=== PATIENT | male | born 1960 | race Caucasian/White ===

== ENCOUNTER 2020-05-22 03:02 | Outpatient (CLI) | payer OTHER, SELFPAY ==
[2020-05-22 13:14] LABS: Anion Gap 9.5 mmol/L (3-11); BUN 17 mg/dL (7-18); CO2 24.5 mmol/L (21.0-32.0); CREATININE 0.82 mg/dL (0.70-1.30); Calcium 9.3 mg/dL (8.5-10.1); Calculated LDL 159 mg/dL (<100); Chloride 103 mmol/L (98-107); Cholesterol 251 mg/dL (<200); Glucose 100 mg/dL (74-106); HDL Cholesterol 73 mg/dL (40-60); Sodium 137 mmol/L (136-145); Triglyceride 99 mg/dL (<150)
[2020-05-22 13:24] LABS: Hemoglobin A1C 5.7 % (<5.7)
[2020-05-23 16:00] LABS: PSA, Screening 0.2 ng/mL (0-4.5)
== END 2020-05-22 03:22 ==
PROVIDERS: PCP Nurse Practitioner Family; Visit Provider Nurse Practitioner Family
DX: I10 Essential (primary) hypertension (principal); E78.5 Hyperlipidemia, unspecified; Z12.5 Encounter for screening for malignant neoplasm of prostate; Z80.42 Family history of malignant neoplasm of prostate
CPT/HCPCS: 36415; 80048; 80061; 84153; 83036

== ENCOUNTER 2020-10-30 14:19 | Outpatient (REF) | payer OTHER, SELFPAY ==
[2020-10-31 13:08] LABS: COVID-19 RT-PCR UVMMC Result Negative (Negative)
== END 2020-10-30 14:20 | disposition home or self-care (01) ==
LOC: NCHCN 14:19
PROVIDERS: PCP Nurse Practitioner Family; Visit Provider Nurse Practitioner Family
DX: Z20.822 Contact with and (suspected) exposure to COVID-19 (principal); J02.9 Acute pharyngitis, unspecified
CPT/HCPCS: U0003

== ENCOUNTER 2021-06-12 14:46 | Outpatient (REF) | payer OTHER, SELFPAY ==
[2021-06-12 19:36] LABS: Abs Immature Grans 0.02 10^3/uL (0.0-0.06); Absolute Basophil Count 0.08 10^3/uL (0.0-0.2); Absolute Eosinophil Count 0.46 10^3/uL (0.0-0.7); Absolute Lymphocyte Count 1.65 10^3/uL (1.2-3.4); Absolute Neutrophil Count 4.84 10^3/uL (1.2-6.7); ESR 22 mm/hr (0-20); HCT 42.7 % (40.0-50.0); HGB 13.8 g/dL (13.5-17.5); Immature Grans % 0.3; Lymphocytes % 21.6; MCH 31.7 pg (27.0-33.0); MCHC 32.3 % (32.0-36.0); MCV 98.2 fL (80-95); MPV 11.5 fL (8.0-11.0); Monocytes % 7.8; Neutrophils % 63.3; Nucleated RBC 0 %; Platelet Count 239 10^3/uL (130-400); RBC 4.35 10^6/uL (4.36-5.78); RDW-SD 43.6 fL; WBC 7.65 10^3/uL (4.4-10.8)
[2021-06-12 20:05] LABS: Hemoglobin A1C 5.7 % (<5.7)
[2021-06-12 20:06] LABS: ALT 37 U/L (16-63); AST 27 U/L (15-37); Albumin 4.3 g/dL (3.4-5.0); Alkaline Phosphatase 51 U/L (46-116); Anion Gap 9.7 mmol/L (3-11); BUN 17 mg/dL (7-18); Bilirubin, Total 0.4 mg/dL (0.2-1.0); C-Reactive Protein 0.39 mg/dL (0.0-0.3); CO2 28.3 mmol/L (21.0-32.0); CREATININE 0.6 mg/dL (0.70-1.30); Calcium 9.1 mg/dL (8.5-10.1); Chloride 101 mmol/L (98-107); Glucose 92 mg/dL (74-106); Potassium 3.6 mmol/L (3.5-5.1); Sodium 139 mmol/L (136-145); Total Protein 7.5 g/dL (6.4-8.2); Uric Acid 3.8 mg/dL (3.5-7.2)
[2021-06-12 20:30] LABS: Calculated LDL 91 mg/dL (<100); Cholesterol 193 mg/dL (<200); HDL Cholesterol 88 mg/dL (40-60); Triglyceride 71 mg/dL (<150)
[2021-06-13 18:25] LABS: Rheumatoid Factor <8.6 IU/mL (<12.0)
[2021-06-13 19:52] LABS: PSA, Screening 0.3 ng/mL (0.0-4.5)
[2021-06-14 11:57] LABS: Lyme Ab w Rflx to Lyme Confirm Positive (Negative)
[2021-06-14 13:28] LABS: Lyme IgG Ab Positive (Negative); Lyme IgM Ab Negative (Negative)
== END 2021-06-12 14:47 | disposition home or self-care (01) ==
LOC: LBN 14:46
PROVIDERS: PCP Nurse Practitioner Family; Visit Provider Family Medicine
DX: E78.5 Hyperlipidemia, unspecified (principal); I10 Essential (primary) hypertension; R73.03 Prediabetes; M79.641 Pain in right hand; M19.041 Primary osteoarthritis, right hand; Z12.5 Encounter for screening for malignant neoplasm of prostate
CPT/HCPCS: 80053; 80061; 84153; 85652; 86617; 83036; 84550; 85025; 86140; 86431; 86618

== ENCOUNTER 2021-06-20 11:35 | Outpatient (CLI) | payer OTHER, SELFPAY ==
--- NOTE | 2021-06-20 11:15 | DI.RAD_ITS ---
Exam(s) XR KNEE LT 3V AP,LAT,JADA EXAM: XR KNEE LT 3V AP,LAT,JADA CLINICAL HISTORY: pain. TECHNIQUE: 2D digital imaging was performed. COMPARISON: CR LEFT KNEE LIMITED 1 OR 2 VIEWS from 10/17/2015 FINDINGS: There is severe narrowing of the medial femoral tibial joint space, with a [id number] appearance. There is periarticular spurring and sclerosis. There is varus angulation at the knee and women designer y widening of lateral femoral tibial joint space. The joint space narrowing has worsened when compar ed with the previous exam. A joint effusion is seen. There are are calcifications adjacent to the l ateral aspect of the patella which could represent a joint space loose body. Mild periarticular spur ring is seen at the patella. Venous varicosities are noted in the medial upper calf region. IMPRESSION: End-stage degenerative changes of the medial femoral tibial joint. DATA REPOSITORY: RADIATION DOSE DELIVERED:
== END 2021-06-20 11:36 | disposition home or self-care (01) ==
LOC: DIORS 11:35
PROVIDERS: PCP Nurse Practitioner Family; Referring Provider Nurse Practitioner Family; Visit Provider Physician Assistant Surgical
DX: M25.562 Pain in left knee (principal); M17.12 Unilateral primary osteoarthritis, left knee
CPT/HCPCS: 73562

== ENCOUNTER 2021-10-31 14:11 | Outpatient (CLI) | payer OTHER, SELFPAY ==
[2021-10-31 13:56] LABS: HCT 41.5 % (40.0-50.0); HGB 13.9 g/dL (13.5-17.5); MCHC 33.5 % (32.0-36.0); MCV 95 fL (80-95); MPV 10.5 fL (8.0-11.0); Platelet Count 241 10^3/uL (130-400); RBC 4.35 10^6/uL (4.36-5.78); RDW-SD 42.6 fL; WBC 6.68 10^3/uL (4.4-10.8)
[2021-10-31 14:30] LABS: D-Dimer 517 ng/mlFEU (<500)
[2021-10-31 14:59] LABS: ALT 52 U/L (16-63); AST 28 U/L (15-37); Albumin 4.3 g/dL (3.4-5.0); Alkaline Phosphatase 50 U/L (46-116); BUN 17 mg/dL (7-18); Bilirubin, Total 0.4 mg/dL (0.2-1.0); CREATININE 0.7 mg/dL (0.70-1.30); Chloride 103 mmol/L (98-107); Glucose 102 mg/dL (74-106); NT-proBNP 27 pg/mL (<300); Potassium 3.7 mmol/L (3.5-5.1); Sodium 139 mmol/L (136-145); Total Protein 7.2 g/dL (6.4-8.2)
[2021-10-31 15:14] LABS: Calculated LDL 90 mg/dL (<100); Cholesterol 183 mg/dL (<200); HDL Cholesterol 80 mg/dL (40-60); Triglyceride 68 mg/dL (<150)
== END 2021-10-31 14:12 | disposition home or self-care (01) ==
LOC: LBO 14:17
PROVIDERS: Nurse Practitioner Family; PCP Nurse Practitioner Family; Visit Provider Family Medicine
DX: Z00.00 Encounter for general adult medical examination without abnormal findings (principal); R73.03 Prediabetes; M79.89 Other specified soft tissue disorders; M25.562 Pain in left knee; I10 Essential (primary) hypertension
CPT/HCPCS: 36415; 80048; 80053; 80061; 85027; 83880; 85379

== ENCOUNTER 2022-10-03 11:17 | Outpatient (CLI) | payer OTHER, SELFPAY ==
--- NOTE | 2022-10-03 10:15 | DI.RAD_ITS ---
Exam(s) XR KNEE LT 1V XR STANDING ALIGNMENT EXAM: XR STANDING ALIGNMENT and XR knee LT 1 V CLINICAL HISTORY: PRE OP L TKA. TECHNIQUE: 2D digital imaging was performed. Nine images were obtained. COMPARISON: CR RIGHT KNEE LIMITED 1 OR 2 VIEW from 05/29/2009 CR RIGHT KNEE LIMITED 1 OR 2 VIEW from 07/10/2009 CR LEFT KNEE 3 VIEW COMPLETE from 07/21/2013 CR XR KNEE LT 3V AP,LAT,JADA from 06/20/2021 FINDINGS: BONES: The hips are well maintained. In the right knee, there is moderately severe narrowing of the medial femoral tibial joint and periarticular spurring medially and laterally. In the left knee, the re is marked narrowing of the medial femoral tibial joint with remodeling of the articular surfaces. Periarticular spurring is seen involving all 3 joint compartments. There is narrowing of the patell ofemoral joint. There is a joint effusion present. The ankles are well maintained.There is no signi ficant leg length discrepancy. SOFT TISSUE: Atherosclerosis is present. IMPRESSION: Moderately severe osteoarthritis of the right knee and marked osteoarthritis of the left knee. DATA REPOSITORY: RADIATION DOSE DELIVERED:
== END 2022-10-03 11:18 | disposition home or self-care (01) ==
LOC: DIORS 11:18
PROVIDERS: PCP Nurse Practitioner Family; Referring Provider Nurse Practitioner Family; Visit Provider Student in an Organized Health Care Education/Training Program
DX: M25.562 Pain in left knee; M17.12 Unilateral primary osteoarthritis, left knee; M17.11 Unilateral primary osteoarthritis, right knee; M25.462 Effusion, left knee
CPT/HCPCS: 73560; 77073

== ENCOUNTER 2022-10-17 08:07 | Day surgery (SDC) | payer OTHER, SELFPAY ==
--- NOTE | 2022-10-16 12:09 | PDOC.DSDIS_ITS ---
Date of service: 10/17/22 Time of Service: 09:52 Discharge Plan Disposition Patient Disposition: Home Condition: Good Discharge Details Reason For Visit: Colonoscopy/colon scope Attending Provider: Taylor Romero Primary Care Provider: Gita Rios Home Meds and New Rx's Prescriptions: Discontinued bisacodyl [Dulcolax (bisacodyl)] 5 mg tablet,delayed release (DR/EC) 5 mg PO ONCE Qty: 4 0RF Rx Instructions: Colonoscopy Bowel Prep- Per Instructions polyethylene glycol 3350 17 gram/dose powder 238 g PO ONCE Qty: 238 0RF Rx Instructions: Colonoscopy Bowel Prep- Per Instructions No Action rosuvastatin 10 mg tablet 10 mg PO DAILY Qty: 90 3RF losartan-hydrochlorothiazide 100-25 mg tablet 1 tab PO DAILY Qty: 90 4RF Rx Instructions: Take one tab daily amlodipine 10 mg tablet 10 mg PO DAILY Qty: 90 3RF celecoxib [Celebrex] 100 mg capsule 100 mg PO BID Qty: 180 3RF Discharge Instructions Additional Instructions: DSU Colonoscopy Post- Op Instructions Instructions for Everyone who is given Anesthesia: For your safety, please do the following for the next twenty-four (24) hours: *Do Not operate a motor vehicle (car, truck, motorcycle, etc.) *Do Not drink alcoholic beverages or use any recreational drugs for the first 24 hours or while taking pain medications. The medications in your body may have a reaction that can be dangerous. *Do Not make any important decisions or sign any important papers. Findings: Normal Follow up: Repeat in 10 years 1. No lifting over 20 pounds or strenuous activity for the first 24 hours after your procedure. After 24 hours there are no restrictions on your activity but you may feel fatigued for a few days. 2. After you arrive home you may have a light meal and return to your normal diet as you can tolerate it without feeling sick to your stomach. 3. You may have a bloated, gaseous feeling in your belly (abdomen) after a colonoscopy. Passing gas and belching will help. Walking or lying down on your left side with your knees flexed may relieve the discomfort. Call the office at [phone] (Office) or [phone] (Hospital) right away if you notice any of the following: a.Vomiting of blood or ?coffee ground stools?. b.Rectal bleeding 1Tbsp, blood clots or continuous bleeding. c.Severe belly (abdominal) pain. d.A hard distended belly (abdomen) and an inability to pass gas. 4. Please don?t expect to have a normal BM (bowel movement) for 2-3 days after your procedure. 5. If there are questions regarding the findings of your procedure, please contact your doctor 6. If you are unable to contact your doctor with a problem, contact the hospital at [phone]. 7. Continue all your regular medications unless directed otherwise. I understand the above instructions and have no questions. Signature of Patient or Adult Escort Name of Responsible Adult Escort Signature of Nurse Date/Time Activity:: See above Diet:: See see above Discharge Orders Discharge Orders: Discharge Order (Routine); Ordered 10/17/22 Ordered By: Taylor Romero
--- NOTE | 2022-10-16 16:49 | W.ANESPRE ---
General Info Date of Service Date Performed: 10/17/22 Height: 6 ft Weight: 54.934 kg Body Mass Index (BMI): 16.4 Surgical Procedure: Operation Date: 10/17/22 09:05 Proposed Procedure Side Surgeon juan Romero, DO Meds Allergies and Home Medications Allergies Allergy/AdvReac Type Severity Reaction Status Date / Time No Known Allergies Allergy Verified 10/17/22 08:32 Home Medication Medication Instructions Recorded rosuvastatin 10 mg tablet 10 mg PO DAILY #90 tabs 11/20/21 losartan 100 1 tab PO DAILY #90 tabs 12/02/21 mg-hydrochlorothiazide 25 mg tablet amlodipine 10 mg tablet 10 mg PO DAILY #90 tab-caps 05/19/22 celecoxib 100 mg capsule (Celebrex) 100 mg PO BID #180 caps 08/11/22 Current Visit Medications: Current Medications Generic Name Dose Route Start Last Admin Trade Name Freq PRN Reason Stop Dose Admin Hyoscyamine Sulfate 0.125 mg 10/17/22 00:07 Hyoscyamine 0.125 Mg Sl/Oral/Chew SL DIRECTED PRN Ringer's Solution 1,000 mls @ 80 mls/hr 10/17/22 06:00 IV 10/26/22 23:59 INFUSION CALLIE IV Miscellaneous Supplies 1 each 10/17/22 06:00 Iv Access IV 10/26/22 23:59 DIRECTED CALLIE Ondansetron HCl 4 mg 10/17/22 00:07 Ondansetron 4 Mg/2 Ml Vial IVP Q4H PRN PRN Nausea / Vomiting Sodium Chloride 0 ml 10/17/22 06:00 Normal Saline Flush 10 Ml Syr IV 10/26/22 23:59 PRN PRN Sodium Chloride 0 ml 10/17/22 06:00 Normal Saline 10 Ml Vial IJ 10/26/22 23:59 DIRECTED PRN Sterile Water 0 ml 10/17/22 06:00 Water,Injection,Sterile 10 Ml Vial IJ 10/26/22 23:59 DIRECTED PRN PFSH Active Problems Active Problems: Problem Status Onset Code Acute carpal tunnel syndrome of right wrist G56.01 Prediabetes R73.03 Essential hypertension I10 Hyperlipidemia E78.5 Primary osteoarthritis of left knee M17.12 Smoker F17.200 Alcohol abuse F10.10 Surgical History Surgical History (Reviewed 10/31/21 @ 15:20 by CHON Carlton S/P left knee arthroscopy S/P tonsillectomy and adenoidectomy Tobacco Smoking/Tobacco Use Status: Current every day Tobacco Type: cigarettes Smoking cigarettes per day: 10 Passive smoking exposure: Yes Second hand exposure: Yes Alcohol Alcohol Intake: current Alcohol intake frequency: a few times a week Alcohol type: beer Substance Use Substance use: Never Substance use type: does not use Vital Signs and Lab Results Vital Signs Most Recent Vital Signs in EMR: Temp Pulse Resp BP Pulse Ox 36.5 C 104 H 20 159/85 H 98 10/17/22 08:35 10/17/22 08:35 10/17/22 08:35 10/17/22 08:35 10/17/22 08:35 Lab Results Blood Type / Crossmatch: No Data to Display Complete Blood Count: No Data to Display Complete Metabolic Panel: No Data to Display Liver Function Panel: No Data to Display Coagulation Panel: No Data to Display Cardiac Panel: No Data to Display Arterial Blood Gas: No Data to Display Venous Blood Gas: No Data to Display Pancreas Panel: No Data to Display Thyroid Panel: No Data to Display Infectious Disease: No Data to Display Blood Cultures: No Data to Display Toxicology Panel: No Data to Display Anesthesia Assessment and Plan Anesthesia History Personal History: No History of Anesthesia Complications Family History: No Family History of Anesthesia Complications Exercise Tolerance Exercise Tolerance: Metabolic Equivalents>4 Cardiac & Pulmonary Exam Cardiac Exam: Normal S1/S2 Heart Sounds Pulmonary Exam: Clear Bilateral Breath Sounds Implantable Cardiac Device Does patient have a Pacemaker or an ICD?: No Airway Exam Known Difficult Airway: No Mallampati Class: 3 Mouth Opening: Narrow (< 3cm) Thyromental Distance: Greater than 3 cm Neck Range of Motion: Full ROM Neck Circumference: Normal Teeth Condition: Normal Dentition ASA Classification ASA Score: ASA 2 Emergency Case?: No NPO Status NPO Status: NPO Clears >2 hours, Solids >8 hours Anesthesia Plan Resuscitation Status: Full Code Anesthesia Technique: General Anesthesia Airway Planned: Natural Airway Monitors Used: Standard Monitors Preoperative Comments:: 62 yo male for colo. Sig PMHx: HTN (losartan, HCTZ, amlodipine), smoker, EtOH abuse, preDM. Previous Anes: knee scope, LMA 5, easy mask.
[2022-10-17 08:35] VITALS: BP 159/85; PULSE 104; RESP 20; TEMP 36.5; O2SAT 98
[2022-10-17] MEDS: Lactated Ringers 1,000 ML 80 ML IV (08:55)
[2022-10-17 09:05] VITALS: BMI 16.4
--- NOTE | 2022-10-17 09:08 | W.COLOREPORT ---
Date of service: 10/17/22 Time of Service: 09:08 Colonoscopy Report Date of procedure: 10/17/22 Pre-op diagnosis general: CRC screening Post-op diagnosis procedure note: other (normal /hemorrhoids ) Surgeon: Taylor Romero Anesthesia Type: General:No Airway Estimated blood loss (mL): 0 Pathology: none sent Complications: None Disposition: same day Prep: Miralax/Dulcolax Retraction Time: 16 Procedure Description: After informed consent was obtained the patient was taken to the procedure room and placed in a left decubitous position. Monitors were applied and a time out was done. The patients name, date of , procedure, allergies to medications and metal in their body was reviewed. The patient was then sedated. Once sedated and comfortable a rectal exam was done. External exam -thrombosed external hemorrhoid.. Internal exam revealed a normal sphincter tone and no palpable masses. The prostate nl. The scope was then introduced and retrofelexed. No internal hemorrhoids were identified. The scope was then advanced to the cecum w/out difficulty. The TI and appendiceal orifice were identified. The prep was BBPS 2 in the right colon, the rest visit BBPS 3 for a total of 8.. The scope was then slowly retracted over 16 minutes back into the rectum. there are no polyps, AVMs, diverticula or strictures visualized today. The scope was removed and the patient was woken up and taken back to Same day surgery in stable condition. The patient tolerated the procedure well and there were no immediate complications. Follow up: The patient should follow up in 10 years unless they develop changes in bowel habits or other new gastrointestinal complaints.
[2022-10-17 09:54] VITALS: BP 118/80; PULSE 82; RESP 16; TEMP 36.4; O2SAT 96
[2022-10-17 10:21] VITALS: BP 120/78; PULSE 75; RESP 18; TEMP 36.5; O2SAT 98
--- NOTE | 2022-10-17 10:21 | W.ANESPOSTOP ---
Postoperative Evaluation Date, Time and Location Date Performed: 10/17/22 Time Performed: 10:00 Patient Location: Day Surgery Unit Vital Signs Most Recent Imported Vital Signs: Most Recent Vital Signs Temp Pulse Resp BP Pulse Ox 36.4 C L 82 16 118/80 96 10/17/22 09:54 10/17/22 09:54 10/17/22 09:54 10/17/22 09:54 10/17/22 09:54 Pain Score Most Recent Pain Score: Most Recent Pain Score Pain Level 0 10/17/22 09:54 Assessment Mental Status: Awake (Alert & Oriented to Patient Baseline) Airway and Respiratory Function: Patent airway with normal (patient baseline) respiratory exam Cardiovascular Function: Hemodynamically Stable Hydration Status: Adequately Hydrated Nausea & Vomiting: No Nausea or Vomiting Pain: Pt. Denies Any Pain Peripheral Nerve Block: Patient did not receive a nerve block
== END 2022-10-17 10:48 | disposition home or self-care (01) ==
PROVIDERS: PCP Nurse Practitioner Family; Visit Provider Surgery
PROC: 0DJD8ZZ Inspection of Lower Intestinal Tract, Via Natural or Artificial Opening Endoscopic (ICD-10-PCS; CPT 45378; principal; 2022-10-17 09:00)
DX: Z12.11 Encounter for screening for malignant neoplasm of colon (principal); K64.5 Perianal venous thrombosis
CPT/HCPCS: 45378; J2250; J2405

== ENCOUNTER 2022-11-14 02:56 | Outpatient (CLI) | payer OTHER, SELFPAY ==
[2022-11-14 11:17] LABS: HCT 42.2 % (40.0-50.0); HGB 14.7 g/dL (13.5-17.5); MCH 32.7 pg (27.0-33.0); MCHC 34.8 % (32.0-36.0); MCV 94 fL (80-95); MPV 10.7 fL (8.0-11.0); Platelet Count 238 10^3/uL (130-400); RBC 4.49 10^6/uL (4.36-5.78); RDW 12.4 % (11.8-14.1); RDW-SD 43.1 fL; WBC 7.95 10^3/uL (4.4-10.8)
[2022-11-14 11:50] LABS: Hemoglobin A1C 5.9 % (<5.7)
[2022-11-14 12:38] LABS: Anion Gap 11.9 mmol/L (3-11); BUN 17 mg/dL (7-18); CO2 25.1 mmol/L (21.0-32.0); CREATININE 0.8 mg/dL (0.70-1.30); Calcium 9.6 mg/dL (8.5-10.1); Chloride 102 mmol/L (98-107); Estimated GFR 99.44 (mL/min/1.73m2); Glucose 113 mg/dL (74-106); Potassium 3.8 mmol/L (3.5-5.1); Sodium 139 mmol/L (136-145)
[2022-11-14 19:26] LABS: PSA, Screening 0.4 ng/mL (<=4.5)
== END 2022-11-14 02:57 | disposition home or self-care (01) ==
LOC: LBO 02:57
PROVIDERS: PCP Nurse Practitioner Family; Visit Provider Student in an Organized Health Care Education/Training Program
DX: Z00.00 Encounter for general adult medical examination without abnormal findings (principal); R73.03 Prediabetes; M25.562 Pain in left knee; M17.12 Unilateral primary osteoarthritis, left knee; Z12.5 Encounter for screening for malignant neoplasm of prostate; Z01.818 Encounter for other preprocedural examination; Z01.812 Encounter for preprocedural laboratory examination
CPT/HCPCS: 36415; 80048; 84153; 85027; 83036

== ENCOUNTER 2022-11-19 10:49 | Day surgery (SDC) | payer OTHER, SELFPAY ==
[2022-11-19 11:14] VITALS: BP 145/75; PULSE 117; RESP 18; TEMP 37; O2SAT 98
[2022-11-19] MEDS: Lactated Ringers 1,000 ML 80 ML IV (11:34)
[2022-11-19] MEDS: Acetaminophen 500 MG TAB 1000 MG PO (11:38)
[2022-11-19] MEDS: Celecoxib 200 MG CAP 400 MG PO (11:38)
[2022-11-19] MEDS: Gabapentin 300 MG CAP PO (11:38)
--- NOTE | 2022-11-19 11:58 | W.ANESPRE ---
General Info Date of Service Date Performed: 11/19/22 Height: 6 ft Weight: 117.6 kg Body Mass Index (BMI): 35.2 Surgical Procedure: Operation Date: 11/19/22 12:40 Proposed Procedure Side Surgeon p Knee Total Arthroplasty, Cementless FB/CR Left Miguel Ángel Cleveland MD Meds Allergies and Home Medications Allergies Allergy/AdvReac Type Severity Reaction Status Date / Time No Known Allergies Allergy Verified 11/18/22 14:44 Home Medication Medication Instructions Recorded amlodipine 10 mg tablet 10 mg PO DAILY #90 tab-caps 05/19/22 hydrocortisone 2.5 % topical cream 1 applic topical QID PRN #30 grams 10/17/22 rosuvastatin 10 mg tablet 10 mg PO DAILY #90 tabs 10/20/22 losartan 100 1 tab PO DAILY #90 tabs 11/03/22 mg-hydrochlorothiazide 25 mg tablet acetaminophen 500 mg tablet 1,000 mg PO TID #90 tabs 11/19/22 aspirin 81 mg tablet,delayed 81 mg PO BID #60 tabs 11/19/22 release celecoxib 200 mg capsule 200 mg PO BID #60 caps 11/19/22 dexamethasone 4 mg tablet 4 mg PO DAILY #2 tabs 11/19/22 gabapentin 300 mg capsule 300 mg PO QHS #14 caps 11/19/22 oxycodone 5 mg tablet 5 mg PO Q4H PRN pain #20 tabs 11/19/22 pantoprazole 40 mg tablet,delayed 40 mg PO DAILY #30 tabs 11/19/22 release Current Visit Medications: Current Medications Generic Name Dose Route Start Last Admin Trade Name Freq PRN Reason Stop Dose Admin Acetaminophen 1,000 mg 11/19/22 06:00 11/19/22 11:38 Acetaminophen 500 Mg Tab PO 11/19/22 16:00 1,000 mg PREOP CALLIE Administration Acetaminophen 1,000 mg 11/19/22 10:12 Acetaminophen 500 Mg Tab PO 12/19/22 13:59 TID PRN Analgesia Celecoxib 400 mg 11/19/22 06:00 11/19/22 11:38 Celecoxib 200 Mg Cap PO 11/19/22 16:00 400 mg PREOP CALLIE Administration Docusate Sodium 100 mg 11/19/22 10:12 Docusate Sodium 100 Mg Cap PO 12/19/22 10:11 BID PRN PRN Constipation Gabapentin 300 mg 11/19/22 06:00 11/19/22 11:38 Gabapentin 300 Mg Cap PO 11/19/22 16:00 300 mg PREOP CALLIE Administration Tranexamic Acid 1,000 mg/ 60 mls @ 360 mls/hr 11/19/22 06:00 Sodium Chloride IVPB 11/19/22 16:00 PREOP CALLIE Cefazolin Sodium 3,000 mg/ 100 mls @ 200 mls/hr 11/19/22 06:00 Sodium Chloride IVPB 11/19/22 18:00 PREOP CALLIE Ringer's Solution 1,000 mls @ 80 mls/hr 11/19/22 06:00 11/19/22 11:34 IV 12/18/22 23:59 80 mls/hr INFUSION CALLIE Administration IV Miscellaneous Supplies 1 each 11/19/22 06:00 Iv Access IV 12/18/22 23:59 DIRECTED CALLIE Ondansetron HCl 4 mg 11/19/22 10:12 Ondansetron 4 Mg/2 Ml Vial IVP 12/19/22 10:11 Q6H PRN PRN Nausea Oxycodone HCl 0 mg 11/19/22 10:12 Oxycodone 5 Mg Tab PO 12/19/22 10:11 Q3H PRN PRN Pain Polyethylene Glycol 17 gm 11/19/22 10:12 Polyethylene Glycol 3350 17 Gm Packet PO 12/19/22 10:11 BID PRN PRN Constipation Sodium Chloride 0 ml 11/19/22 06:00 Normal Saline Flush 10 Ml Syr IV 12/18/22 23:59 PRN PRN Sodium Chloride 0 ml 11/19/22 06:00 Normal Saline 10 Ml Vial IJ 12/18/22 23:59 DIRECTED PRN Sterile Water 0 ml 11/19/22 06:00 Water,Injection,Sterile 10 Ml Vial IJ 12/18/22 23:59 DIRECTED PRN PFSH Active Problems Active Problems: Problem Status Onset Code Alcohol abuse F10.10 Essential hypertension I10 Primary osteoarthritis of left knee M17.12 Hyperlipidemia E78.5 Prediabetes R73.03 Carpal tunnel syndrome of right wrist G56.01 Cigarette smoker F17.210 Medical History Medical History (Updated 11/19/22 @ 11:10 by Radha Porter RN) Tibial plateau fracture Right, approx 10 years ago Medical History Comments:: pt reports delirium after last anesthesia with L knee scope Surgical History Surgical History S/P left knee arthroscopy S/P tonsillectomy and adenoidectomy Tobacco Smoking/Tobacco Use Status: Current every day Tobacco Type: cigarettes Smoking packs per day: 0.5 Smoking cigarettes per day: 10.0 Years smoked: 40 Smoking pack-years: 20.00 Passive smoking exposure: No Second hand exposure: Yes Alcohol Alcohol Intake: current Alcohol intake frequency: a few times a week Alcohol type: beer Substance Use Substance use: Never Substance use type: does not use Details: tobacco last use 1000 am last alcohol t-2 Vital Signs and Lab Results Vital Signs Most Recent Vital Signs in EMR: Most Recent Vital Signs Temp Pulse Resp BP Pulse Ox 37.0 C 117 H 18 145/75 H 98 11/19/22 11:14 11/19/22 11:14 11/19/22 11:14 11/19/22 11:14 11/19/22 11:14 Lab Results Blood Type / Crossmatch: No Data to Display Complete Blood Count: White Blood Count 7.95 10^3/uL (4.4-10.8) 11/14/22 11:09 Red Blood Count 4.49 10^6/uL (4.36-5.78) 11/14/22 11:09 Hemoglobin 14.7 g/dL (13.5-17.5) 11/14/22 11:09 Hematocrit 42.2 % (40.0-50.0) 11/14/22 11:09 Platelet Count 238 10^3/uL (130-400) 11/14/22 11:09 Complete Metabolic Panel: Sodium 139 mmol/L (136-145) 11/14/22 11:09 Potassium 3.8 mmol/L (3.5-5.1) 11/14/22 11:09 Chloride 102 mmol/L (98-107) 11/14/22 11:09 Carbon Dioxide 25.1 mmol/L (21.0-32.0) 11/14/22 11:09 BUN 17 mg/dL (7-18) 11/14/22 11:09 Creatinine 0.8 mg/dL (0.70-1.30) 11/14/22 11:09 Est GFR (CKD-EPI 2020) 99.44 (mL/min/1.73m2) 11/14/22 11:09 Calcium 9.6 mg/dL (8.5-10.1) 11/14/22 11:09 Glucose 113 mg/dL (74-106) H 11/14/22 11:09 Hemoglobin A1c 5.9 % (<5.7) H 11/14/22 11:09 Liver Function Panel: No Data to Display Coagulation Panel: No Data to Display Cardiac Panel: No Data to Display Arterial Blood Gas: No Data to Display Venous Blood Gas: No Data to Display Pancreas Panel: No Data to Display Thyroid Panel: No Data to Display Infectious Disease: No Data to Display Blood Cultures: No Data to Display Toxicology Panel: No Data to Display Anesthesia Assessment and Plan Anesthesia History Personal History: PONV and Other Family History: No Family History of Anesthesia Complications Exercise Tolerance Exercise Tolerance: Metabolic Equivalents>4 Pertinent Negatives Pertinent Negatives: No Symptoms of GERD, No Major Cardiovascular Symptoms or Complaints and No Major Pulmonary Symptoms or Complaints Cardiac & Pulmonary Exam Cardiac Exam: Normal S1/S2 Heart Sounds Pulmonary Exam: Clear Bilateral Breath Sounds Implantable Cardiac Device Does patient have a Pacemaker or an ICD?: No Airway Exam Known Difficult Airway: No Mallampati Class: 3 Mouth Opening: Narrow (< 3cm) Thyromental Distance: Greater than 3 cm Neck Range of Motion: Full ROM Neck Circumference: Normal Teeth Condition: Normal Dentition ASA Classification ASA Score: ASA 2 Emergency Case?: No NPO Status NPO Status: NPO Clears >2 hours, Solids >8 hours Anesthesia Plan Resuscitation Status: Full Code Anesthesia Technique: Spinal Anesthesia Airway Planned: Natural Airway Pain Management: Surgeon and patient request nerve block Monitors Used: Standard Monitors
[2022-11-19 12:04] VITALS: BMI 35.2
[2022-11-19 12:26] VITALS: BP 149/80; PULSE 102; RESP 16; TEMP 37; O2SAT 98
--- NOTE | 2022-11-19 12:38 | W.ANESNERVE ---
Nerve Block Single Injection Procedure Date and Time Date Performed: 11/19/22 Procedure Start: 12:26 Location Where Procedure Performed Procedure Location: Day Surgery Unit Reason Performed: Postoperative Analgesia Requesting Provider: Miguel Ángel Cleveland Timeout Performed Timeout Performed: Yes Monitoring Used ECG, Blood Pressure and SpO2 Sterility Sterility: Hand Hygiene, Surgical Cap, Surgical Mask, Sterile Gloves and Chlorhexidine Sedation Given During Procedure Sedation Given (Indicate Dose Given): No Sedation given Patient Mental Status Patient Mental Status: Awake Nerve Block 1st Nerve Block: Laterality: Left Block Type: Adductor Canal Ultrasound Image Saved?: Yes Needle / Catheter Used: 100mm SonoPlex II Local Anesthetic Bolus (Indicate Dose Given): None and Bupivacaine 0.25% Dose:: 15 ml Additives (Indicate Dose Given): None Ultrasound: Sterile probe cover and gel used Nerve Stimulator: Supplement to Ultrasound use and No twitch or parasthesia noted < 0.5 mA Paresthesia: None Post Procedure Pain score (0-10): 0 Procedure Tolerated: No Complications and Patient tolerated well Procedure Outcome: Successful Performed By: Anthony Bertrand
[2022-11-19] MEDS: ceFAZolin 3,000 MG in Normal Saline 100 ML 200 MG IVPB (13:09)
[2022-11-19 15:11] VITALS: BP 153/83; PULSE 103; RESP 18; TEMP 36.4; O2SAT 97
[2022-11-19] MEDS: Doxycycline Hyclate 100 MG CAP 200 MG PO (15:21)
[2022-11-19] MEDS: oxyCODONE 5 MG TAB PO (15:21)
--- NOTE | 2022-11-19 15:31 | W.ANESPOSTOP ---
Postoperative Evaluation Date, Time and Location Date Performed: 11/19/22 Time Performed: 15:31 Patient Location: Day Surgery Unit Vital Signs Most Recent Imported Vital Signs: Most Recent Vital Signs Temp Pulse Resp BP Pulse Ox 36.4 C L 103 H 18 153/83 H 97 11/19/22 15:11 11/19/22 15:11 11/19/22 15:11 11/19/22 15:11 11/19/22 15:11 Pain Score Most Recent Pain Score: Most Recent Pain Score Pain Level 7 11/19/22 15:11 Assessment Mental Status: Awake (Alert & Oriented to Patient Baseline) Airway and Respiratory Function: Patent airway with normal (patient baseline) respiratory exam Cardiovascular Function: Hemodynamically Stable Hydration Status: Adequately Hydrated Nausea & Vomiting: No Nausea or Vomiting Pain: Pain is Moderate or Severe Postoperative Pain Management: Pain being addressed with medication Peripheral Nerve Block: Regional nerve block not resolved at time of post operative discharge
[2022-11-19 15:37] VITALS: BP 160/82; PULSE 103; RESP 18; TEMP 36.7; O2SAT 97
--- NOTE | 2022-11-19 16:05 | PT.INIE ---
PT Notes Visit Reasons: L TKR Physical Therapy Day Surgery Initial Evaluation Date: 11/19/2022 Referring Doctor: CONSTANCE Jensen PT Orders: PT CONSULT: S/p Ortho surgery Precautions: WBAT on left LE with AD Patient Profile/Admitting Diagnosis: Jose Cruz is a 62-year-old male with degenerative joint disease of the left knee and is status post left total knee arthroplasty on postoperative day 0. PMHX: All Active Problems Prediabetes (Chronic) Essential hypertension (Chronic) Hyperlipidemia (Chronic) Primary osteoarthritis of left knee (Chronic) Alcohol abuse (Chronic) Carpal tunnel syndrome of right wrist (Chronic) Cigarette smoker (Chronic) Surgical History? S/P left knee arthroscopy S/P tonsillectomy and adenoidectomy Social History/Home Situation: Lives alone in a private home with one-step to enter. Does have a flight of steps to the second floor of his house however okay to stay in the main floor as he recovers. Building new home in [place] on his own, 75% done. Has a brother who will be able to stay with him tonight. Equipment Owned/DME: None Subjective: Reports 4/10 pain in the left knee with weight bearing that eventually subsided. Denies headache, chest pain, and lightheadedness throughout session. Objective: General Observation: Seated on bedside chair. JENSEN wraps to left LE. TEDS to right leg. Mental Status: Alert and oriented x4 Pain: 4/10 in the left knee ROM: Right Lower Extremity: Hip flexion WFL. Hip abduction WFL. Knee flexion WFL. Ankle dorsiflexion WFL. Ankle plantarflexion WFL. Left Lower Extremity: Hip flexion WFL. Hip abduction WFL. Knee flexion 20 degrees to 100 degrees. Knee extension -20 degrees. Ankle dorsiflexion WFL. Ankle plantarflexion WFL. Strength: Right Lower Extremity: Hip flexors 5/5. Hip abductors 5/5. Knee flexors 5/5. Knee extensors 5/5. Ankle dorsiflexors 5/5. Ankle plantarflexors 5/5. Left Lower Extremity:Hip flexors 5/5. Hip abductors 5/5. Knee flexors 3-/5. Knee extensors 3-/5. Ankle dorsiflexors 5/5. Ankle plantarflexors 5/5. Sensation: Progress to pain and light pressure in bilateral lower extremities Bed Mobility/Transfers: Sit to stand standby assist Stand to sit standby assist Bed to chair standby assist Gait: Tolerated level surface ambulation of 150 feet using front wheeled walker with step to gait pattern. L knee extension at L mid stance limited but no loss of balance. Stairs: Negotiated 6 x 4 inch steps and 4 x 6 inch steps while holding onto bilateral rails with step to gait pattern. Now considering placement of bilateral rails at home. Balance: Static Sitting: Normal Dynamic Sitting: Normal Static Standing: Fair Dynamic Standing: Fair Special Tests: Mobility Limitations Standardized Measure [facility]-P[facility] 6 clicks Basic Mobility Inpatient Short Form: Raw Score: 23 CMS Score: 11% deficit Informed Consent/Education: Patient instructed in purpose of PT consult. Packet containing TKA exercise protocol has been given to patient. Education and training on initial set of exercises that can be done at home have been completed with patient, as follows: Access Code: [email or web address] URL: [email or web address] Date: 11/19/2022 Prepared by: Angie Crump Exercises - Supine Quadricep Sets - 1 x daily - 7 x weekly - 1 sets - 10 reps - 5 hold - Supine Heel Slide - 1 x daily - 7 x weekly - 1 sets - 10 reps - 5 hold - Supine Ankle Pumps - 1 x daily - 7 x weekly - 1 sets - 10 reps - 5 hold - Small Range Straight Leg Raise - 1 x daily - 7 x weekly - 1 sets - 10 reps - 5 hold - Seated March - 1 x daily - 7 x weekly - 1 sets - 10 reps - 5 hold Assessment: Jose Cruz requires use of a front wheel walker to maximize independence and reduce fall risk. Patient presents with clinical signs and symptoms consistent with current/admitting diagnoses that have resulted to mobility limitations, gait instability, generalized weakness, and impairment of motor control as demonstrated by the following impairment level findings: 1. Decreased strength to left knee major muscle groups 2. Impaired standing balance 3. Limitation of joint range of motion in left knee Impairments are contributing to the following functional limitations: 1. Inability to safely ambulate without assistive device 2. Increase completion time for mobility ADL performance 3. Increased fall risk Patient is assessed as a 34057 moderate complexity based on the following: History: 62-year-old male with impairment level findings, functional limitations, and past medical history as indicated above Examination: Demonstrable impairment in strength, balance, and mobility level with underlying impairments and functional limitations as documented above Presentation: Evolving Decision Makin moderate complexity Goals: N/A. PT evaluation and 1-2 treatment sessions only for functional mobility training using recommended AD and for HEP instruction. Plan of Care/Treatment Plan: N/A. PT evaluation and 1-2 treatment session only for functional mobility training using recommended AD and for HEP instruction. DISCHARGE RECOMMENDATIONS: Home when medically cleared by orthopedic surgeon. Recommend outpatient PT services in order to optimize functional mobility outcomes and facilitate return to independent community ambulation without an assistive device. TREATMENT CODE/TIME: 25341 x 20 minutes, 10624 x 18 minutes beginning at 16:08 PM. Thank you for the opportunity to participate in the care of this patient. Angie Crump PT, DPT, CLT [facility] [place], [place]
--- NOTE | 2022-11-19 16:12 | PDOC.DSDIS_ITS ---
Date of service: 11/19/22 Time of Service: 16:12 Discharge Plan Disposition Patient Disposition: Home Condition: Good Discharge Details Reason For Visit: L TKR Attending Provider: Miguel Ángel Cleveland Primary Care Provider: Gita Rios Home Meds and New Rx's Prescriptions: New acetaminophen 500 mg tablet 1,000 mg PO TID Qty: 90 3RF aspirin 81 mg tablet,delayed release (DR/EC) 81 mg PO BID Qty: 60 0RF celecoxib 200 mg capsule 200 mg PO BID Qty: 60 0RF pantoprazole 40 mg tablet,delayed release (DR/EC) 40 mg PO DAILY Qty: 30 0RF dexamethasone 4 mg tablet 4 mg PO DAILY Qty: 2 0RF gabapentin 300 mg capsule 300 mg PO QHS Qty: 14 0RF oxycodone 10 mg tablet 5 - 10 mg PO Q4H PRNQty: 20 0RF Continued losartan-hydrochlorothiazide 100-25 mg tablet 1 tab PO DAILY Qty: 90 3RF Rx Instructions: Take one tab daily amlodipine 10 mg tablet 10 mg PO DAILY Qty: 90 3RF rosuvastatin 10 mg tablet 10 mg PO DAILY Qty: 90 3RF hydrocortisone 2.5 % cream 1 applic topical QID PRNQty: 30 2RF Discontinued celecoxib [Celebrex] 100 mg capsule 100 mg PO BID Qty: 180 3RF Discharge Instructions Additional Instructions: Total Knee Discharge Instructions Activity: The most important activity is to walk and to work on gentle motion (both flexion and extension). You should try to take short walks a few times a day. It is important that when resting you work on keeping the knee straight. Avoid putting a pillow behind the knee as this will encourage flexion. Work on range of motion exercises as provided by Physical Therapy. - Start outpatient physical therapy within 2 weeks. - You should wear the DAVIS hose on both legs for 2 weeks. You may remove these at night. You may also use any compression sock in place of the DAVIS hose. - Utilize [employer] to review exercises, see videos on exercises and obtain basic information pertaining to your surgery and your recovery. Dressing: Remove the Meek wrap by 2 days after your surgery and put on the DAVIS stocking given to you from the hospital. Keep the surgical dressing (underneath the MEEK wrap) in place for at least one week. After the first week it may be removed and replaced with light gauze and tape or nothing. The wound and dressing may get wet after 3 days but avoid soaking the dressing or otherwise it will need to be changed. Many people prefer covering the dressing with cling wrap (saran wrap) to minimize it from getting soaked. If it gets wet, just pat dry. If it starts to peel off then it will need to be changed. Medications: - You should take Tylenol and anti-inflammatory Celebrex as your primary pain control medications. If the Celebrex is too expensive or not covered, please call the office for another alternative (Advil/Ibuprofen or Naproxen/Aleve) - You have been prescribed a stronger pain medication Oxycodone for breakthrough pain, take as needed as prescribed. - You have also been prescribed a stomach acid reduction agent Pantoprozole to help reduce stomach acid and reflux. - You have been prescribed Gabapentin to take at night for restlessness and nerve pain. - You will be taking Aspirin 81mg twice a day for DVT prevention unless instructed otherwise. - You have also been prescribed Decadron to take to control post-operative nausea and pain. You will start this tomorrow. - If you have constipation you should take Colace or Miralax (both [id number]). It takes most people 3-4 days to have a bowel movement. Follow-up: 2 weeks If you have any acute concerns or questions, please do not hesitate to contact the office at [phone]. You may contact Dr. Cleveland with any questions after hours through the hospital at [phone] or on his cell phone at [phone]. Referrals: Miguel Ángel Cleveland MD [ [facility] STAFF PHYSICIAN] - Equipment/Supplies: Walker Activity:: Activity as Tolerated Shower/Bathe:: 72 hours Diet:: As Tolerated Discharge Orders Discharge Orders: Discharge Order (Routine); Ordered 11/19/22 Ordered By: Miguel Ángel Cleveland DS: Diagnosis Discharge Diagnosis (1) Primary osteoarthritis of left knee: Status: Chronic
--- NOTE | 2022-11-19 16:14 | W.PM.OP ---
Date of service: 11/19/22 Time of Service: 14:30 Operative Note Operative Note DATE OF PROCEDURE: 11/19/22 PRE-OP DIAGNOSIS: Left Knee Osteoarthritis with Tibial Varus Deformity POST-OP DIAGNOSIS: same PROCEDURE: Left Total Knee Replacement with Intraoperative Navigation SURGEON: Miguel Ángel Cleveland FAMILY INTERVENTION SPECIALIST: Miguel Carcamo ANESTHESIA TYPE: Spinal Refer to Anesthesia Record ESTIMATED BLOOD LOSS: 200 PATHOLOGY: none sent TOURNIQUET TIME: 0 COMPLICATIONS: None Patient was transported to: PACU Patient's condition: stable Implants: 1. Depuy Attune Cementless Cruciate Retaining Femoral Component, Size 8 2. Depuy Attune Cementless Fixed Bearing Tibial Component, Size 7 3. Depuy Attune 8x14 CR/FB Poly 4. Depuy Attune Patellar Component, Size 41 Indications: I have seen Jose Cruz in clinic for symptoms of LEFT knee arthritis, confirmed with radiographic findings. Jose Cruz has exhausted nonoperative methods and was having significant limitations in daily function and desired better function and less pain. I discussed the technical details of a knee replacement. I explained the risks of the procedure to include, but not limited to, bleeding, infection, pain, stiffness, fracture, damage to nerves and vessels, damage to muscles and tendons, loosening, need for repeat procedure, blood clot and cardiopulmonary demise. Despite these risks, he elected to proceed. Findings: There was significant signs of arthritis throughout the knee with a significant deformity of the medial tibia and medial femur. Procedure Description: Jose Cruz was greeted in the preoperative holding area where the correct side was identified and marked. The consent was reviewed with the patient and signed. The history and physical was updated. All questions were answered. Preoperative mediacations were administered: Acetaminophen 1000mg, Celebrex 400mg, and Gabapentin 300mg. An adductor canal block was then administered by the anesthesia team in the PACU. He was taken back to the operating room. A spinal anesthestic was then administered. The patient was placed into the supine position on the operating room table. A nonsterile tourniquet was placed high onto the leg. Posts were placed for positioning during the procedure. All bony prominences were well padded. Prophylactic antibiotics in the form of Cefazolin were administered. 1g of Tranxemic Acid was given intravenously within 30 minutes of incision. The left leg was then prepped with Chloraprep and draped in a standard fashion with impervious stockinette. A second prep with Chloraprep was performed prior to application of Iodine impregnated skin protection. A timeout to confirm correct identity, side and site, procedure, allergies, anesthesia, and medical concerns was performed. With the knee in some flexion, a midline incision was made overlying the knee. Full thickness skin flaps were raised once the extensor mechanism was encountered. These were raised medially and laterally. Any bleeding was controlled with electrocautery. Once the extensor mechanism was fully exposed, a medial parapatellar arthrotomy was performed in a flexed position. All bleeding from the arthrotomy and the geniculate arteries was coagulated. A medial subperiosteal peel was performed with electrocautery to the midcoronal plane. Due to the significant varus deformity the entire medial tibial plateau was exposed. The fat pad was removed while keeping the patellar tendon protected. The anterior distal femur synovium was removed for later visualization. The ACL and PCL were resected and the anterior horn of the lateral meniscus was transected. The knee was then flexed with the patella everted. Large osteophytes from the tibia were removed. Large osteophytes from the femur were removed. A single starting pin was then placed 1cm anterior to the PCL insertion and the notch in the direction of the femoral head. The OrthoAlign device was applied over the pin. It was oriented to be in line with the epicondylar axis and the trochlear groove. It was then pinned into place. The navigation computer was then turned on and calibrated. The distal femur cut was set at 1 degree varus and 3.5 degrees flexion. The distal femur cutting guide then was positioned for a 11mm cut. The distal femur was cut with an oscillating saw while protecting the soft tissues. The tibia was then addressed. The OrthoAlign device was placed over the tibial tubercle and medial tibia and secured into position. Once again, OrthoAlign was calibrated and then set for a 2.5 degrees varus cut and 5.5 degrees of posterior slope. With this locked into position, the cut thickness stylus was used to assess cut thickness. The medial side, most involved side, was set for a 2mm cut. This was then held in position and pinned into place with 2 additional pins and a cross pin for stability. The medial and lateral collateral ligaments were protected and the cut was performed. With this completed, it was assessed and noted to be of appropriate dimensions. The guide and OrthoAlign was removed. A spacer block was inserted and the knee was brought into extension to ensure enough space was present. The femur was then sized as a size 8. The Orthoalign gap balancing device was then placed in extension. This was used to ensure that the ligaments were properly balanced with up to 2 to 3 mm laxity laterally compared medially. The extension gap was measured as 23mm. The knee was then brought into 90 degrees of flexion and the ligament transportation maintenance worker was once again placed. Under the same amount of force the flexion gap was measured. The Attune specific jig was placed and the flexion gap was made to match the extension gap. The 4-in-1 cutting guide was the placed. An felicia wing was used to confirm appropriate position of the anterior cut to avoid notching. This cutting guide was ensured to be flush on the cut surface and then pinned into place with headed pins. While protecting the soft tissues, quad tendon, and collateral ligaments, the anterior and posterior cuts were performed with a saw. The central two pins were removed and the posterior and anterior chamfers were cut next. The notch-cutting guide was placed. This was pinned to lateralize the femoral component as much as possible while keeping it flush on the cut surface. This was then pinned into position. A saw was used to make the notch cut. A rasp smoothed the cut surfaces. The medial and lateral menisci were removed. A trial femoral component was then inserted, impacted down to the cut surfaces, and the lug holes were drilled. A provisional trial tibial component was placed and the knee was brought through range of motion. There was noted to be excellent extension and flexion. There was no significant instability. The patella was tracking without thumbs. A size 14mm polyethylene component provided the best range of motion and stability with less than 2mm gapping with medial and lateral stress and full extension without significant hyperextension. The tibial cut surface was fully exposed. The tibia was then sized as a 7. The tibia had been previously marked during trialing to correspond to the center of the tibial component to help with rotation. The trial was aligned to this miguel, approximately rotated to the medial 1/3rd of the tibial tubercle. The trial was pinned into place. The tibia was prepared with a reamer and a keel punch and lug holes. The knee was then brought into extension and the patella was measured as 28mm. Using the patellar clamp and cut guide, this was resected to a flat surface with at least 13mm of thickness remaining. The size 41 patella fit the best. This was oriented and then clamped into position. The lugs were drilled. The trial components were removed. The final components were opened on the back table. The periosteal and capsular tissues, especially posteriorly, around the knee were then systematically injected with a periarticular cocktail consisting of 246mg of Ropivacaine, 0.5mg of Epinephrine, 0.08mg of Clonidine, and 30mg of Ketorolac, diluted to 100cc. On the back table, with the implants opened, the cement was mixed. One batch of high viscosity cement was prepared with vacuum assistance. After the cement was ready a small amount was placed on the cut surface of the patella and the patellar button was clamped into position and held. While the cement was hardening, the cementless knee components were placed. Starting with the tibial component, the tibia was subluxed anteriorly and the lug holes of the component were lined up. The tibia was then impacted with an impactor and mallet until the tibial component was in contact with the tibia. The final polyethylene component was inserted. Then, the femoral component was inserted. The lug holes were aligned and the component was impacted into position. The knee was irrigated with Surgiphor Betadine solution. This was allowed to sit in the knee for 3 minutes and then it was thoroughly irrigated out with saline. After the cement had finally cured, approximately 15min, the clamp was removed from the patella and the knee was taken through range of motion. The patella was tracking with a no-thumbs technique. The capsule was then reapproximated with a No. 1 Vicryl at multiple locations. The capsule was finally closed with a No. 2 Stratafix, barbed suture. Deep tissues were then reapproximated with 0 Vicryl and 2-0 Vicryl. The skin was closed with a running 3-0 Monocryl in a subcuticular fashion. This was reinforced with skin glue. A Mepilex silver dressing was applied along with a nlta-di-bwnyl JENSEN wrap. A CryoCuff was applied. Jose Cruz was transferred to the hospital bed without difficulty an suffering no apparent complication. Jose Cruz has a good prognosis. Physical therapy will start today and without restrictions, weight-bearing as tolerated. Aspirin 81mg BID will be used for DVT prophylaxis.
== END 2022-11-19 17:00 | disposition home or self-care (01) ==
PROVIDERS: PCP Nurse Practitioner Family; Visit Provider Student in an Organized Health Care Education/Training Program
PROC: (CPT 27447; principal; 2022-11-19 12:30)
DX: M17.12 Unilateral primary osteoarthritis, left knee (principal); I10 Essential (primary) hypertension; E78.5 Hyperlipidemia, unspecified; R73.03 Prediabetes; F17.210 Nicotine dependence, cigarettes, uncomplicated; M92.512 Juvenile osteochondrosis of proximal tibia, left leg
CPT/HCPCS: 27447; 20985; 76942; 97110; 97162; J0690; J1100; J2370; J2405; J3010

== ENCOUNTER 2022-12-04 13:26 | Outpatient (CLI) | payer OTHER, SELFPAY ==
--- NOTE | 2022-12-04 10:30 | DI.RAD_ITS ---
Exam(s) XR KNEE LT 1V XR STANDING ALIGNMENT EXAM: XR STANDING ALIGNMENT and XR knee LT 1 V CLINICAL HISTORY: 1ST POST OP L TKA. TECHNIQUE: 2D digital imaging was performed. Five images were obtained. COMPARISON: CR XR STANDING ALIGNMENT from 10/03/2022 CR XR KNEE LT 1V from 10/03/2022 FINDINGS: BONES: There are degenerative changes seen in the lower lumbar spine. There are mild degenerative ch anges seen in the hips bilaterally. Since the prior examination, there has been interval placement o f a left total knee replacement. The orthopedic hardware appears in good position. The bones are in tact. There are moderately severe degenerative changes in the right knee with joint space narrowing and periarticular spurring. The findings are most marked in the medial femoral tibial joint. The an kles are well maintained.There is no significant leg length discrepancy. SOFT TISSUE: Atherosclerosis is present. IMPRESSION: 1. Status post left total knee replacement. 2. Moderately severe degenerative changes in the right knee. DATA REPOSITORY: RADIATION DOSE DELIVERED:
== END 2022-12-04 13:27 | disposition home or self-care (01) ==
LOC: DIORS 13:26
PROVIDERS: PCP Nurse Practitioner Family; Visit Provider Physician Assistant
DX: Z96.652 Presence of left artificial knee joint (principal); M17.11 Unilateral primary osteoarthritis, right knee; Z47.1 Aftercare following joint replacement surgery
CPT/HCPCS: 73560; 77073

== ENCOUNTER 2023-02-12 11:56 | Outpatient (CLI) | payer OTHER, SELFPAY ==
--- NOTE | 2023-02-12 10:52 | DI.RAD_ITS ---
Exam(s) XR KNEE LT 3V AP,LAT,JADA EXAM: XR KNEE LT 3V AP,LAT,JADA CLINICAL HISTORY: f/u L TKA with pain. TECHNIQUE: 2D digital imaging was performed. COMPARISON: CR XR KNEE LT 1V from 10/03/2022 CR XR KNEE LT 1V from 12/04/2022 CR XR STANDING ALIGNMENT from 12/04/2022 FINDINGS: 3 views Stable position alignment of the components of the recently placed left knee prosthesis. No fracture or loosening evident. IMPRESSION: Stable satisfactory appearance. DATA REPOSITORY: RADIATION DOSE DELIVERED:
== END 2023-02-12 11:57 | disposition home or self-care (01) ==
LOC: DIORS 11:56
PROVIDERS: PCP Nurse Practitioner Family; Referring Provider Nurse Practitioner Family; Visit Provider Student in an Organized Health Care Education/Training Program
DX: Z96.652 Presence of left artificial knee joint (principal); Z47.1 Aftercare following joint replacement surgery
CPT/HCPCS: 73562

== ENCOUNTER 2023-11-09 09:53 | Outpatient (CLI) | payer OTHER, SELFPAY ==
[2023-11-09 12:39] LABS: Anion Gap 11.9 mmol/L (3-11); BUN 14 mg/dL (7-18); CO2 27.1 mmol/L (21.0-32.0); CREATININE 0.8 mg/dL (0.70-1.30); Calcium 9.1 mg/dL (8.5-10.1); Calculated LDL 97 mg/dL (<100); Chloride 103 mmol/L (98-107); Cholesterol 188 mg/dL (<200); Estimated GFR 98.83 (mL/min/1.73m2); Glucose 104 mg/dL (74-106); HDL Cholesterol 76 mg/dL (40-60); Potassium 3.9 mmol/L (3.5-5.1); Sodium 142 mmol/L (136-145); TSH (W/Ref FT4) 0.71 uIU/mL (0.36-3.74); Triglyceride 79 mg/dL (<150)
[2023-11-09 12:52] LABS: Hemoglobin A1C 6.1 % (<5.7)
[2023-11-09 18:33] LABS: PSA, Screening 0.3 ng/mL (<=4.5)
[2023-11-09 19:18] LABS: Hepatitis C Ab w Rflx HCV PCR Negative (Negative)
== END 2023-11-09 09:54 | disposition home or self-care (01) ==
LOC: LOS 09:54
PROVIDERS: PCP Nurse Practitioner Family; Referring Provider Nurse Practitioner Family; Visit Provider Nurse Practitioner Family
DX: Z00.00 Encounter for general adult medical examination without abnormal findings (principal); I10 Essential (primary) hypertension; R73.03 Prediabetes; Z11.59 Encounter for screening for other viral diseases; Z12.5 Encounter for screening for malignant neoplasm of prostate
CPT/HCPCS: 36415; 80048; 80061; 84153; 86803; 83036; 84443

== ENCOUNTER 2023-11-20 11:10 | Outpatient (CLI) | payer OTHER, SELFPAY ==
--- NOTE | 2023-11-20 09:30 | DI.RAD_ITS ---
Exam(s) XR KNEE LT 2V AP,LAT EXAM: XR KNEE LT 2V AP,LAT CLINICAL HISTORY: ANNUAL F/U L TKA. TECHNIQUE: 2D digital imaging was performed. Three views. COMPARISON: CR XR KNEE LT 3V AP,LAT,JADA from 02/12/2023 FINDINGS: BONES: No acute fracture is present. No bony destructive lesion is seen. JOINTS: The knee is normally aligned. No joint effusion is seen. Stable appearance of total knee pr osthesis. SOFT TISSUE: Normal. IMPRESSION: Stable postsurgical appearance. DATA REPOSITORY: RADIATION DOSE DELIVERED:
== END 2023-11-20 11:11 | disposition home or self-care (01) ==
LOC: DIORS 11:10
PROVIDERS: PCP Nurse Practitioner Family; Referring Provider Nurse Practitioner Family; Visit Provider Physician Assistant
DX: Z96.652 Presence of left artificial knee joint (principal); Z47.1 Aftercare following joint replacement surgery
CPT/HCPCS: 73560

== ENCOUNTER 2024-12-29 02:58 | Outpatient (CLI) | payer OTHER, SELFPAY ==
[2024-12-29 12:50] LABS: Hemoglobin A1C 5.7 % (<5.7)
[2024-12-29 12:56] LABS: Anion Gap 8.5 mmol/L (3-11); BUN 15 mg/dL (7-18); CO2 27.5 mmol/L (21.0-32.0); Calcium 9.2 mg/dL (8.5-10.1); Calculated LDL 84 mg/dL (<100); Chloride 103 mmol/L (98-107); Cholesterol 178 mg/dL (<200); Estimated GFR 102.25 (mL/min/1.73m2); Glucose 111 mg/dL (74-106); HDL Cholesterol 74 mg/dL (>or=40); Potassium 3.6 mmol/L (3.5-5.1); Sodium 139 mmol/L (136-145); Triglyceride 101 mg/dL (<150)
[2024-12-29 18:45] LABS: PSA, Screening 0.3 ng/mL (<=4.5)
== END 2024-12-29 02:59 | disposition home or self-care (01) ==
LOC: LOS 02:58
PROVIDERS: PCP Nurse Practitioner Family; Visit Provider Nurse Practitioner Family
DX: Z13.1 Encounter for screening for diabetes mellitus (principal); Z13.220 Encounter for screening for lipoid disorders; Z12.5 Encounter for screening for malignant neoplasm of prostate; I10 Essential (primary) hypertension
CPT/HCPCS: 36415; 80048; 80061; 84153; 83036